=== PATIENT | female | born 1960 | race Caucasian/White ===

== ENCOUNTER 2017-05-15 18:56 | Inpatient (IN) | END 2017-07-01 21:40 | DRG 840 ==

== ENCOUNTER → 2017-05-15 | Outpatient (CLI) | END | disposition home or self-care (01) ==

== ENCOUNTER 2017-08-29 10:48 | Inpatient (IN) | END 2017-09-02 16:20 | DRG 841 ==

== ENCOUNTER 2017-09-05 19:01 | Inpatient (IN) | END 2017-09-17 18:00 | DRG 871 ==

== ENCOUNTER 2017-10-07 15:57 | Inpatient (IN) | END 2017-10-23 20:16 | disposition EXP | DRG 870 ==